=== PATIENT | male | born 1960 | race Caucasian/White ===

== ENCOUNTER → 2016-11-26 | Outpatient (CLI) | payer MEDICARE, MEDICAID ==
[~2016-11-26] MED LIST: B COCAP4 PO; COLL1POW XX; CORE3.12 PO; FOLI1TAB4 PO; HYDR200T3 PO; IBUP80TA PO; METH2.5TA PO; NICO21DI5 TD; OMEP10CASR PO; PRED25TA PO; PRIL20CA9 PO; SULF500T2 PO; VITA1CAP2 PO
[2016-11-26 10:04] LABS: EOS # 0.1 K/mm3 (0.0-0.50); EOS % 1.7 % (0.0-3.0); LARGE UNSTAINED CELL # 0.1 K/mm3 (0.0-0.4); LYMPH # 1.8 K/mm3 (1.5-4.5); LYMPH % 38.7 % (24.0-44.0); MEAN CORPUSCULAR HEMOGLOBIN 32.7 pg (27.0-33.0); MONO # 0.3 K/mm3 (0.0-0.8); MONO % 6.7 % (0.0-5.0); NEUTROPHILS # 2.1 K/mm3 (1.8-7.7); NEUTROPHILS % 48.9 % (36.0-66.0); PLATELET COUNT, AUTOMATED 191 k/mm3 (150-450); RED CELL DISTRIBUTION WIDTH 13.1 % (11.5-14.5); WHITE BLOOD COUNT 4.3 K/mm3 (4.0-10.0)
[2016-11-26 10:29] LABS: ALBUMIN 3.7 GM/DL (3.2-5.2); ALBUMIN/GLOBULIN RATIO 1.48 (1.00-1.93); ALKALINE PHOSPHATASE 65 U/L (45-117); ALT/SGPT 38 U/L (12-78); ANION GAP 8 MEQ/L (8-16); AST/SGOT 25 U/L (15-37); BILIRUBIN,TOTAL 0.7 MG/DL (0.2-1.0); BLOOD UREA NITROGEN 6 MG/DL (7-18); CALCIUM LEVEL 8.4 MG/DL (8.5-10.1); CARBON DIOXIDE LEVEL 28 MEQ/L (21-32); CHLORIDE LEVEL 107 MEQ/L (98-107); FERRITIN 261 NG/ML (26-388); GLOMERULAR FILTRATION RATE > 60.0 (>56); GLUCOSE, FASTING 82 MG/DL (70-105); PERCENT SATURATION 19.6 % (19.7-50.0); PHOSPHORUS LEVEL 3.6 MG/DL (2.5-4.9); POTASSIUM SERUM 3.9 MEQ/L (3.5-5.1); SODIUM LEVEL 143 MEQ/L (136-145); TOTAL IRON BINDING CAPACITY 286 UG/DL (250-450); TOTAL PROTEIN 6.2 GM/DL (6.4-8.2)
[2016-11-26 11:04] LABS: VITAMIN B12 LEVEL 901 PG/ML (247-911)
[2016-11-28 11:03] LABS: PRETREATED FOLATE FOR RBCFOL 19.4 NG/ML
== END ==
LOC: M LAB 09:30
PROVIDERS: ATTEND Surgery
DX: K91.2 Postsurgical malabsorption, not elsewhere classified (principal)

== ENCOUNTER 2017-09-29 06:25 | Day surgery (SDC) | payer MEDICARE, MEDICAID ==
[~2017-09-29 06:25] MED LIST changes: -B COCAP4 PO; -COLL1POW XX; -CORE3.12 PO; -FOLI1TAB4 PO; -HYDR200T3 PO; -IBUP80TA PO; -METH2.5TA PO; -NICO21DI5 TD; -OMEP10CASR PO; -PRED25TA PO; -PRIL20CA9 PO; +SLF 3 ML SYR IV; -SULF500T2 PO; -VITA1CAP2 PO
[2017-09-29] MEDS: LIDOCAINE 3.5 % 1ML OPHTH TOPICAL GEL OU (06:52)
[2017-09-29] MEDS: POVIDONE-IODINE 5% OPHTH PREP SOL 30ML As Ordered (07:28)
[2017-09-29] MEDS ORDERED: MIDAZOLAM INJ 2 MG/2 ML VIAL (J2250) As Ordered (07:30)
[2017-09-29] MEDS ORDERED: fentaNYL 100 MCG/2 ML INJECTION (J3010) As Ordered (07:30)
[2017-09-29] MEDS: LIDOCAINE 2% W/EPIN INJ 20ML **PRES FREE As Ordered (07:31)
[2017-09-29] MEDS: TOBRADEX OPHTH OINT 3.5 GM As Ordered (07:47)
== END 2017-09-29 08:40 | disposition home or self-care (01) ==
LOC: M SDC 06:25
DX: H02.102 Unspecified ectropion of right lower eyelid (principal); I50.9 Heart failure, unspecified; K21.9 Gastro-esophageal reflux disease without esophagitis; D64.9 Anemia, unspecified; M06.9 Rheumatoid arthritis, unspecified; R06.83 Snoring; G47.33 Obstructive sleep apnea (adult) (pediatric); I87.2 Venous insufficiency (chronic) (peripheral); I51.7 Cardiomegaly; E78.5 Hyperlipidemia, unspecified; I11.0 Hypertensive heart disease with heart failure; Z79.899 Other long term (current) drug therapy; Z87.890 Personal history of sex reassignment; Z86.69 Personal history of other diseases of the nervous system and sense organs; Z72.0 Tobacco use; Z98.84 Bariatric surgery status
CPT/HCPCS: 67924

== ENCOUNTER → 2019-01-01 | Outpatient (REF) | payer MEDICARE, MEDICAID ==
[~2019-01-01] MED LIST changes: +B COCAP4 PO; +B-12500T2 PO; +CALCTAB7 PO; +COLL1POW XX; +CORE3.12 PO; +FERR325T16 PO; +FLIN1CHW PO; +FOLI1TAB11 PO; +HYDR200T3 PO; +IBUP80TA PO; +METH2.5T48 PO; +MISO200T56 PO; +NICO21DI6 TD; +OMEP10CASR PO; +OMEP40CA2 PO; +PRED25TA PO; +PRIL20CA9 PO; -SLF 3 ML SYR IV; +SULF500T2 PO; +TYLE325T5 PO; +VITA-183 PO
== END ==
LOC: M LAB REF 09:30
PROVIDERS: ATTEND Ophthalmology
DX: D22.122 Melanocytic nevi of left lower eyelid, including canthus (principal)